=== PATIENT | male | born 1960 | race Caucasian/White ===

== ENCOUNTER 2017-07-16 11:08 | Emergency (ER) | payer OTHER ==
[~2017-07-16] VITALS: Ht 172.7 cm; Wt 75.5 kg
[2017-07-16 12:09] LABS: HEMATOCRIT 38.3 % (38.0-50.0); HEMOGLOBIN 13.3 G/DL (12.5-16.6); MCH 30.1 PG (29.0-34.0); MCHC 34.7 G/DL (30.0-36.0); MCV 86.7 FL (86-99); PLATELET COUNT 216 K/uL (156-360); RBC DIS.WIDTH-CV 12.2 % (11.8-14.6); RBC DIS.WIDTH-SD 39.2 % (39-53); RED BLOOD COUNT 4.42 M/uL (4.00-5.50); WHITE BLOOD COUNT 7.5 K/uL (4.1-10.2)
[2017-07-16 12:11] LABS: APPEARANCE CLEAR ((CLEAR)); BILIRUBIN NEGATIVE; BLOOD SMALL; COLOR STRAW ((YELLOW)); GLUCOSE (STRIP) NEGATIVE; KETONES NEGATIVE; LEUKOCYTES NEGATIVE; NITRITE NEGATIVE; PROTEIN (STRIP) NEGATIVE; SPECIFIC GRAVITY 1.002 (1.000-1.030); UROBILINOGEN 0.2 MG/DL (0.2-1.0)
[2017-07-16] MEDS ORDERED: LOSARTAN POTASS50 MG PO (12:16)
[2017-07-16] MEDS ORDERED: VIMPAT100 MG PO (12:16)
[2017-07-16] MEDS ORDERED: FINASTERIDE5 MG PO (12:16)
[2017-07-16] MEDS ORDERED: ZOLPIDEM TART6.25 MG PO (12:17)
[2017-07-16] MEDS ORDERED: TYLENOL REGULA325 MG PO (12:17)
[2017-07-16] MEDS ORDERED: NAPROSYN250 MG PO (12:18)
[2017-07-16 12:20] LABS: CHLORIDE 105 mEq/L (99-109); POTASSIUM 4.1 mEq/L (3.7-5.4); SODIUM 138 mEq/L (136-147)
[2017-07-16 12:22] LABS: GLUCOSE 74 mg/dL (70-99)
[2017-07-16 12:26] LABS: CREATININE 1.5 mg/dL (0.6-1.3); UREA NITROGEN (BUN) 16 mg/dL (9-23)
[2017-07-16 12:36] LABS: GFR ESTIMATE (CALCULATED) 52 mL/min/ (58.99-99999)
[2017-07-16 12:39] LABS: BACTERIA NONE SEEN /HPF; EPITHELIAL CELLS NONE SEEN /HPF; MUCUS NONE SEEN /LPF; RED BLOOD CELLS 0-5 /HPF (0-5); UCUL ADDED? NO; WHITE BLOOD CELLS 0-5 /HPF (0-5)
[2017-07-16 14:00] VITALS: BP 128/79
[2017-07-16] MEDS ORDERED: MOTRIN600 MG PO (14:08)
== END 2017-07-16 14:25 | disposition home or self-care (01) ==
LOC: EME 11:08
DX: N23 Unspecified renal colic (principal); Z87.442 Personal history of urinary calculi; I10 Essential (primary) hypertension; F41.9 Anxiety disorder, unspecified; N40.0 Benign prostatic hyperplasia without lower urinary tract symptoms; R56.9 Unspecified convulsions; Z88.0 Allergy status to penicillin
CPT/HCPCS: 74176; 80048; 81003; 85027; 99281; 99284; J1885